=== PATIENT | female | born 1965 | race Caucasian/White ===

== ENCOUNTER 2016-12-28 13:14 | Emergency (ER) | payer OTHER ==
--- NOTE | 2016-12-28 13:39 | ERNOTE ---
Lower Extremity HPI - General Time Seen by Provider: 12/28/16 13:34 Source: patient Exam Limitations: no limitations - Immun/Allergies/Home Medications Immunizations: IMMUNIZATION HX Immunizations Up to Date Yes History of Influenza Vaccine No Hx Pneumococcal Vaccination No Allergies/Adverse Reactions: Allergies Allergy/AdvReac Type Severity Reaction Status Date / Time aspirin AdvReac Mild Other Verified 03/18/16 19:08 ibuprofen AdvReac Mild Other Verified 03/18/16 19:08 Home Medications: HOME MEDICATIONS Biotin 5,000 mcg PO BID 01/30/15 [Last Taken Unknown] Ferrous Sulfate [Iron] 325 mg PO BID 01/30/15 [Last Taken Unknown] Fluticasone Propionate [Flonase] 1 spray NS BID PRN 01/30/15 [Last Taken Unknown ] Levothyroxine Sodium [Synthroid] 50 mcg PO DAILY 01/30/15 [Last Taken Unknown] Cyanocobalamin (Vitamin B-12) [Vitamin B-12] 500 mcg PO DAILY 03/08/15 [Last Taken Unknown] Norethindrone Acetate [Aygestin] 10 mg PO DAILY 06/06/15 [Last Taken Unknown] Nortriptyline HCl 50 mg PO HS 06/06/15 [Last Taken Unknown] tiZANidine HCL [Tizanidine HCl] 2 mg PO TID PRN 06/06/15 [Last Taken Unknown] Cyclobenzaprine HCl 10 mg PO BID 03/16/16 [Last Taken Unknown] Duloxetine HCl [Cymbalta] 30 mg PO DAILY 03/16/16 [Last Taken Unknown] Gabapentin 600 mg PO TID 03/16/16 [Last Taken Unknown] HYDROcodone/ACETAMINOPHEN [[place] 5-325 Tablet] 1 each PO TID 03/16/16 [Last Taken Unknown] Neomy Sulf/Polymyx B Sulf/Hc [Cortisporin Otic] 3 drop LEFT EAR TID #10 ml 03/16 [Last Taken Unknown] Sulfamethoxazole/Trimethoprim [Bactrim Ds] 1 tab PO BID #20 tab 03/16/16 [Last Taken Unknown] Ciprofloxacin HCl/Dexameth [Ciprodex Otic Suspension] 4 drop LEFT EAR BID 7 Days drops.susp 03/18/16 [Last Taken Unknown] Acetaminophen 500 mg PO TID #30 tablet 12/28/16 [Last Taken Unknown] - History of Present Illness Narrative: Patient presents to the emergency room "I'm not sure what happened" however the patient states she got drunk on Thursday night that is 2 nights ago and since then she's had pain in her right fourth toe. There is also associated swelling and ecchymosis in the corresponding region Review of Systems - Review of Systems Constitutional: Present: no symptoms reported EYE: Present: no symptoms reported ENT: Present: no symptoms reported Respiratory: Present: no symptoms reported Cardiology: Present: no symptoms reported Gastrointestinal/Abdominal: Present: no symptoms reported Genitourinary: Present: no symptoms reported Musculoskeletal: Present: See HPI - Patient's Past Medical History Patient History - Medical: Chronic Pain, Hypothyroidism, Migraines, Obesity Patient History - Cardiac/Respiratory: Hypertension Patient History - Cancer: No Hx of Cancer Patient History - Surgical Procedures: Appendectomy, , D & C, Other Patient History - Other: None LMP (Calendar): 03/30/15 - Family History Father Family History - Medical: Diabetes Type 2 Family History - Cardiac/Respiratory: No pertinent hx - Social History Living Situations: home Abuse History: No History of abuse Psych History: No pertinent hx Smoking Status: Current every day smoker Alcohol Use: occasionally Drug Use: none - Immunizations Immunizations Up to Date: Yes Hx Pneumococcal Vaccination: No History of Influenza Vaccine: No Physical Exam - Physical Exam General Appearance: Present: wd/wn, alert Head Exam: Present: normal inspection, no evidence of injury Respiratory: Present: no respiratory distress, normal breath sounds, no accessory muscle use, chest nontender, lungs clear Cardiovascular/Chest: Present: regular rate, rhythm, no murmur, normal peripheral pulses Extremity Exam: Present: other - exam is normal with the exception that the patient's right fourth toe appears to be swollen and ecchymotic and tender upon palpation the ecchymosis starts in the mid toe region on the dorsal aspect and it extends proximally onto the dorsal aspect of the fourth MTP joint. ED Progress - Vital Signs Patient's Vital Signs:: I have reviewed the patient's vital signs. Vital Signs: Vital Signs 12/28/16 13:23 Temperature 36.6 C Pulse Rate 93 Respiratory 14 Rate Blood Pressure 140/89 O2 Sat by Pulse 99 Oximetry - X-Ray X-Ray #1 X-Ray: foot - Progress/Reassessment Chief Complaint: Foot Injury/Pain Plan - Plan Plan: I do not see an obvious fracture on x-ray however I will treat this fourth toe as if it is fractured. Gentle pressure was applied and gentle traction was applied in case the toe is slightly dislocated, patient tolerated the procedure well and the toe will be nick taped and patient will be sent to primary care physician her pain will be treated. Departure Clinical Impression: Pain in toe of right foot - Departure Disposition: Home self-care Condition: Good Instructions: Toe Fracture, [id number] Referrals: Ibeth Caruso FNP [Primary Care Provider] - Prescriptions: Acetaminophen 500 mg PO TID #30 tablet
[2016-12-28 14:07] VITALS: BP 134/70
== END 2016-12-28 14:06 | disposition home or self-care (01) ==
LOC: ER 13:14
PROC: 2W3QX1Z Immobilization of Right Lower Leg using Splint (ICD-10-PCS; principal; 2016-12-28)
DX: M79.674 Pain in right toe(s) (principal); F17.200 Nicotine dependence, unspecified, uncomplicated

== ENCOUNTER 2017-01-24 08:35 | Emergency (ER) | payer OTHER ==
[2017-01-24 08:43] VITALS: BP 147/64
--- NOTE | 2017-01-24 09:30 | ERNOTE ---
Upper Extremity HPI - Narrative Date of Service: 01/24/17 - General Extremities Pain Location: 3rd finger: right Time Seen by Provider: 01/24/17 08:51 Source: patient Exam Limitations: no limitations - Immun/Allergies/Home Medications Immunizations: IMMUNIZATION HX Immunizations Up to Date Yes History of Influenza Vaccine No Hx Pneumococcal Vaccination No Allergies/Adverse Reactions: Allergies Allergy/AdvReac Type Severity Reaction Status Date / Time aspirin AdvReac Mild Other Verified 03/18/16 19:08 ibuprofen AdvReac Mild Other Verified 03/18/16 19:08 Home Medications: HOME MEDICATIONS Biotin 5,000 mcg PO BID 01/30/15 [Last Taken Unknown] Ferrous Sulfate [Iron] 325 mg PO BID 01/30/15 [Last Taken Unknown] Fluticasone Propionate [Flonase] 1 spray NS BID PRN 01/30/15 [Last Taken Unknown ] Levothyroxine Sodium [Synthroid] 50 mcg PO DAILY 01/30/15 [Last Taken Unknown] Cyanocobalamin (Vitamin B-12) [Vitamin B-12] 500 mcg PO DAILY 03/08/15 [Last Taken Unknown] Norethindrone Acetate [Aygestin] 15 mg PO DAILY 06/06/15 [Last Taken Unknown] Nortriptyline HCl 50 mg PO HS 06/06/15 [Last Taken Unknown] Gabapentin 600 mg PO TID 03/16/16 [Last Taken Unknown] Acetaminophen 500 mg PO TID #30 tablet 12/28/16 [Last Taken Unknown] Amox Tr/Potassium Clavulanate [Augmentin 250-62.5/5 Suspension] 10 ml PO TID # 210 btl 01/24/17 [Last Taken Unknown] - History of Present Illness Narrative: Right handed female who resents to the ED for right long finger pain. She relates that she has had problems with that finger for a long time. She had been diagnosed with trigger finger and had seen ortho a year ago or better but no surgery. She relates she is being seen for a broken toe in the ortho department by Darrel Khan now. Since she has been having increased pain in the finger and she is having difficulty straightening it out without pain. No injury noted. No focal N/T/W. No fever. She relates it seems to be mildly swollen. Occurred: other - noticed 2-3 days ago Method of Injury: Reports: no apparent injury Modifying Factors - (Improves): Reports: rest Modifying Factors - (Worsens): Reports: movement Associated Symptoms: Denies: tingling, weakness Prior Treament: Denies: recently seen Review of Systems - Review of Systems Constitutional: Absent: fever Musculoskeletal: Present: See HPI Skin: Absent: rash Neurological: Present: See HPI - Patient's Past Medical History Patient History - Medical: Anemia, Chronic Pain, Hypothyroidism, Migraines, Obesity Patient History - Cardiac/Respiratory: Hypertension, Hyperlipidemia, CPAP/BiPAP Home Use, Sleep Apnea Patient History - Cancer: No Hx of Cancer Patient History - Surgical Procedures: Appendectomy, , D & C, Other, Orthopedic Patient History - Other: None - Family History Father Family History - Medical: Diabetes Type 2 Family History - Cardiac/Respiratory: No pertinent hx - Social History Living Situations: home Abuse History: No History of abuse Psych History: No pertinent hx Smoking Status: Current every day smoker Have you smoked in the past 12 months: Yes Do you dip or chew tobacco: No Alcohol Use: rarely Drug Use: none - Immunizations Immunizations Up to Date: Yes Hx Pneumococcal Vaccination: No History of Influenza Vaccine: No Physical Exam - Physical Exam General Appearance: Present: alert, no apparent distress Head Exam: Present: normal inspection Eye Exam: Normal inspection: bilateral Respiratory: Present: no respiratory distress Cardiovascular/Chest: Present: normal peripheral pulses Extremity Exam: Present: other - There is some very mild swelling long finger right at proximal finger. no redness or warmth, nothing to suggest infection, asbscess, tenosynovitis clinically. Pain limits exam but no clear extensor tendon/FDS/FDP loss of function. No other hand tendenress. No palmar tenderness. Brisk capillary refill. Clinically no suggestion of infectious process. Neurological Exam: Present: alert, other - no unilateral focal motor or seneory deficits. She has sensation to LT in the affected finger. Pain limts exam somewhat but no clear acute focal motor deficits. Skin Exam: Present: normal color, warm/dry ED Progress - Vital Signs Patient's Vital Signs:: I have reviewed the patient's vital signs. Vital Signs: Vital Signs 01/24/17 01/24/17 08:37 08:42 Temperature 36.8 C 36.8 C Pulse Rate 99 99 Respiratory 17 17 Rate Blood Pressure 147/64 147/64 O2 Sat by Pulse 97 97 Oximetry - X-Ray X-Ray #1 X-Ray: hand Interpretation: Interp. by me X-ray Comments: Not being read by radiology in real time, by my interpretation, no evidence of acute fractue or acute process. - Progress/Reassessment Chief Complaint: Upper Extremity Injury/Problem Progress Note-Subjective: 01/24/17 09:29 I spoke with Darrel Khan, her orthopedist and precision instrument maker today for ortho. He recommends long finger split and oral antibiotics with office follow-up. Patient agreeable to this. I discussed warning signs and reasons to return as well as the need for close f/u. Departure Clinical Impression: Finger pain - Departure Disposition: Home self-care Condition: Stable Instructions: Musculoskeletal Pain Additional Instructions: Use splint as directed. i have spoken with Orthopedics, they would like you to call the office Thursday morning for a appointment time, also like you to begin antibiotics. Rest. Ice. Elevate. Return here for fever, redness, increased pain, swelling or if your condition worsens or changes in any way. Referrals: Ibeth Caruso FNP [Primary Care Provider] - Prescriptions: Amox Tr/Potassium Clavulanate [Augmentin 250-62.5/5 Suspension] 10 ml PO TID # 210 btl
== END 2017-01-24 09:20 | disposition home or self-care (01) ==
LOC: ER 08:35
PROC: 2W3JX1Z Immobilization of Right Finger using Splint (ICD-10-PCS; principal; 2017-01-24)
DX: M79.644 Pain in right finger(s) (principal); D64.9 Anemia, unspecified; G89.29 Other chronic pain; E03.9 Hypothyroidism, unspecified; I10 Essential (primary) hypertension; E78.5 Hyperlipidemia, unspecified; F17.200 Nicotine dependence, unspecified, uncomplicated